=== PATIENT | female | born 1985 | race Caucasian/White ===

== ENCOUNTER 2023-09-23 09:30 | Emergency (ER) | payer MEDICAID ==
[~2023-09-23] VITALS: Ht 154.9 cm; Wt 61.6 kg
[2023-09-23 09:45] VITALS: BP 127/91; PULSE 87; RESP 18; O2SAT 99
[2023-09-23 10:46] VITALS: TEMP 97
[2023-09-24 19:16] LABS: HBSAG SCREEN Negative (Negative); HEP A AB, IGM Negative (Negative); HEP B CORE AB, IGM Negative (Negative); HEPATITIS C VIRUS ANTIBODY Non Reactive (Non Reactive)
== END 2023-09-23 10:47 | disposition home or self-care (01) ==
LOC: ER 09:31
DX: B19.10 Unspecified viral hepatitis B without hepatic coma (principal)
CPT/HCPCS: 36415; 80074; 99283